=== PATIENT | female | born 1945 | race Caucasian/White ===

== ENCOUNTER 2023-02-03 08:55 | Day surgery (SDC) | payer OTHER, MEDICARE ==
[2023-02-03] MEDS ORDERED: Ringers Lactate 1,000 ML IV ONE (09:23)
[2023-02-03] MEDS ORDERED: CEFAZOLIN SODIUM 1 GM/VIAL ONE (09:23)
[2023-02-03 09:37] LABS: Absolute Lymphocytes (CBC) 1.1 K/uL (0.7-4.9); Hematocrit 38.9 % (36.0-45.0); Lymphocytes % 12.1 % (15.3-44.8); MCV 90.2 fL (80-100); MPV 7.4 fL (7.6-11.3); RBC Red Blood Cell Count 4.31 M/uL (3.86-4.86)
[2023-02-03 09:51] LABS: Potassium 3.8 mEq/L (3.5-5.1)
--- NOTE | 2023-02-03 10:26 | RAD REPORT ---
EXAM DESCRIPTION: Teodora Pa And Lat (2 Views)02/03/2023 9:56 am CLINICAL HISTORY: pre procedural screening. Hypertension COMPARISON: Ribs Right dated 04/19/2017 TECHNIQUE: Portable AP view of the chest. FINDINGS: The lungs are clear. Hyperlucency and hyperinflation suggestive of COPD. Left basilar atel ectasis, stable. No pneumothorax or effusion. The cardiomediastinal contours are unremarkable. IMPRESSION: No acute cardiopulmonary process. Sequelae of COPD and left basilar atelectasis, stable .
[2023-02-03] MEDS ORDERED: BUPIVACAINE 0.5% PF 10 ML VIAL ONE (11:03)
[2023-02-03] MEDS ORDERED: propofoL 200 MG/20 ML VIAL IV ONE (11:04)
[2023-02-03] MEDS ORDERED: FENTANYL CITR 100 MCG/2 ML ONE (11:04)
[2023-02-03] MEDS ORDERED: ONDANSETRON 4 MG/2 ML VIAL ONE (11:05)
[2023-02-03] MEDS ORDERED: LIDOCAINE 2% MPF 5 ML VIAL ONE (11:05)
[2023-02-03] MEDS ORDERED: Phenylephrine HCl 10 MG/ML 1 ML VIAL ONE (11:47)
[2023-02-03] MEDS ORDERED: EPHEDRINE SULF 50 MG/ML VIAL ONE (11:47)
[2023-02-03] MEDS ORDERED: NS 0.9% VIAL 10 ML ONE (11:48)
--- NOTE | 2023-02-03 12:09 | P.BOP ---
Preoperative diagnosis: infected right leg hematoma with abscess Postoperative diagnosis: same Primary procedure: Evacuation og leg leg infected hematoma/abscess 7x7cm Estimated blood loss: <10cc Specimen: pus culture Findings: abscess Anesthesia: General Complications: None Drain(s): Other (iodoform 08/10 ") Transferred to: Recovery Room Condition: Good
[2023-02-03] MEDS: MORPHINE 4 MG/ML SYR ONE ×2 (12:24→12:32)
[2023-02-03 13:21] VITALS: BP 115/67; TEMP 97; O2SAT 98
[2023-02-03] MEDS ORDERED: HYDROCODONE/APAP 5/325 MG TAB ONE (13:40)
--- NOTE | 2023-02-05 11:20 | EKG ---
Test Date: 2023-02-03 Test Time: 09:23:09 Cdl Service Technician: ARELI MEASUREMENT RESULTS: Intervals: Rate: 78 TX: 188 QRSD: 68 QT: 378 QTc: 430 Morgan: P: 69 TX: 188 QRS: 79 T: 74 INTERPRETIVE STATEMENTS: Normal sinus rhythm Normal ECG No previous ECG available for comparison Electronically Signed On 02-05-23 11:17:47 CDT by Duke Mi
--- NOTE | 2023-02-13 13:06 | DS ---
Date of Discharge: 02/03/2023 Diagnosis: Infected right leg hematoma with abscess. Procedure: Evacuation of right leg infected hematoma with complex abscess drainage. Disposition: Home. Activity: As tolerated. No heavy lifting. Plan: Follow up in my office in 1 week. Call for appointment at [phone]. The patient will be pack ing the area. Most of the skin was left open. We put some pressure and tried to use that as a skin graft to cover the areas of concern, so the packing made very simple for her to do iodoform daily. I f she needs any help, we might have to arrange for home health agency. She thinks she can do it. Inessa curran was advised to continue her antibiotics. We will see the patient in 1 week in my office. YARELIS Voice ID: [id number] Report ID: [id number]
--- NOTE | 2023-02-13 13:13 | OP ---
Date of Procedure: 02/03/2023 Surgeon: Gurmeet James MD Preoperative Diagnosis: Infected right leg hematoma with abscess. Postoperative Diagnosis: Infected right leg hematoma with abscess. Procedure: Evacuation of leg infected hematoma with abscess drainage 7 x 7 cm. Estimated Blood Loss: Less than 10 mL. Specimen: Pus culture. Finding: Complex abscess. Anesthesia: General plus local. Complications: None. Packing: Iodoform quarter of an inch. Indication: This is the case of a female, who comes to us with a trauma to the right leg region. Th is resulted in bulging in that area. It got red after her cat scratched her on the same area of anca bee and from there, she has been on antibiotics on and off for the last several weeks. To the point that she was sent to our office because it was not improving and it was requested for drainage of th e area, evacuation of hematoma and also drainage of an abscess. The benefits, alternatives, and risk s of that fully explained to the patient, which include, but not limited to infection, bleeding, tj ge to adjacent structures, anesthesia complication, nonhealing wound, VA, and even . She also u nderstands this may not relieve any symptoms. She might need more than one surgical intervention. S he understands she may require wound care. The area of concern was marked by me and the patient in t he holding room. Procedure In Detail: The patient was brought to the operating room, placed in supine position. Anes thesia was done without complication. A time-out was called. Leg was prepped and draped in the usua l sterile fashion. We have a necrotic center that have to be debrided. That necrotic center was rem gita. It is about 1.5 x 1.5 cm that led us into infected hematoma with pus coming out. Has multiple loculations that we have to be explored and opened. This complex abscess was completely drained wit h irrigation was done. Then, after that, we proceeded to pack the area with quarter of an inches Nu Gauze. Hemostasis was obtained at all times. The patient tolerated the procedure well. The patient was sent to recovery in stable condition. VAZQUEZ/JUSTINL Voice ID: [id number] Report ID: [id number]
== END 2023-02-03 14:00 | disposition home or self-care (01) ==
LOC: OR 08:55
PROVIDERS: ATTEND Surgery
PROC: 0H9KXZX Drainage of Right Lower Leg Skin, External Approach, Diagnostic (ICD-10-PCS; principal; 2023-02-03 11:00)
DX: S80.11XA Contusion of right lower leg, initial encounter (principal); L02.415 Cutaneous abscess of right lower limb; I96 Gangrene, not elsewhere classified
CPT/HCPCS: 93005; 87070; 85025; 80048; 36415; 87205; 88304; 87075; 71046; 10060; A4216; J2704; J2370; J2001; J3010; J2405; J7120; J0690

== ENCOUNTER 2024-09-14 16:26 | Emergency (ER) | payer OTHER, MEDICARE ==
--- NOTE | 2024-09-14 17:51 | RAD REPORT ---
EXAM: Knee Right 3 View INDICATION: PAIN COMPARISON: None FINDINGS: No acute fracture. Remote patellar fracture with deformity. Small knee effusion. Slight medial compartment narrowing. Mild patellofemoral compartment spurring. Other: n/a IMPRESSION: No evidence of acute osseous abnormality involving the imaged knee.
[2024-09-14] MEDS ORDERED: ACETAMINOPHEN 325 MG TABLET ONE (17:53)
[2024-09-14] MEDS ORDERED: TRAMADOL HCL 50 MG TAB ONE (17:54)
--- NOTE | 2024-09-14 17:59 | EDPHYS ---
Physician Documentation [facility] Name: Renetta Aguilera Age: 79 yrs Sex: Female : 1945 Arrival Date: 09/14/2024 Time: 16:26 Bed 4 Private MD: ED Physician Cain Suggs HPI: 09/14 16:44 This 79 yrs old Female presents to ER via Unassigned with complaints of Fall Injury, sb4 Knee Pain, Arm Pain. 16:44 tripped and fell getting out of her car a few hours ago, landed on her right knee. sb4 complains of pain with flexion and weight bearing. denies any numbness or tingling. is concerned because she has broken it in the past and required a knee replacement. Historical: - Allergies: 16:34 No Known Allergies; hb - PMHx: 16:34 reflux; hb 16:44 A fib; ll1 - PSHx: 16:44 lung collapsed; ll1 - Immunization history:: Adult Immunizations up to date. - Infectious Disease History:: Denies. - Social history:: Smoking status: Patient denies any tobacco usage or history of. ROS: 16:44 Constitutional: Negative for fever, chills, and weight loss, sb4 16:44 MS/extremity: Positive for injury or acute deformity, pain, of the right knee, 16:44 All other systems are negative, Exam: 16:44 Constitutional: This is a well developed, well nourished patient who is awake, alert, sb4 and in no acute distress. Head/Face: Normocephalic, atraumatic. Eyes: Extra-ocular motions intact. Periorbital areas with no swelling, redness, or edema. ENT: Mucous membranes moist. Respiratory: No increased work of breathing, no retractions or nasal flaring. 16:44 Musculoskeletal/extremity: Pulses: are normal with no appreciated deficits, Perfusion: the extremity is normally perfused throughout, Sensation intact. Joints: the right knee displays painful range of motion, 16:44 Skin: injury, abrasion(s), small abrasion noted, of the right elbow, Vital Signs: 16:43 BP 119 / 70; Pulse 81; Resp 17; Temp 97.8; Pulse Ox 100% ; Weight 47.63 kg; Height 5 ll1 ft. 8 in. ; Pain 10/10; 18:00 BP 118 / 92; Pulse 73; Resp 15; Pulse Ox 100% ; cm10 16:43 Body Mass Index 15.97 (47.63 kg, 172.72 cm) ll1 16:43 Pain Scale: Adult ll1 MDM: 16:36 Medical Screening Exam initiated sb4 17:47 Data reviewed: vital signs, nurses notes, radiologic studies, and as a result, I will sb4 discharge patient. Historians other than the Patient: Daughter/Son: daughter. Counseling: I had a detailed discussion with the patient and/or guardian regarding the historical points, exam findings, and any diagnostic results supporting the discharge/admit diagnosis, radiology results, the need for outpatient follow up, for definitive care, to return to the emergency department if symptoms worsen or persist or if there are any questions or concerns that arise at home. 09/14 16:43 Order name: Knee Right 3 View XRAY; Complete Time: 17:52 sb4 09/14 16:43 Order name: Wound Care; Complete Time: 18:32 sb4 09/14 17:48 Order name: Ice pack; Complete Time: 18:32 sb4 Administered Medications: 17:55 Drug: Acetaminophen PO 650 mg PO once Route: PO; ll1 18:32 Follow up: Response: No adverse reaction cm10 17:55 Drug: traMADol PO 50 mg PO once Route: PO; ll1 18:32 Follow up: Response: No adverse reaction cm10 Disposition Summary: 09/14/24 17:59 Discharge Ordered Notes: Location: Home sb4 Problem: new sb4 Symptoms: have improved sb4 Condition: Stable sb4 Diagnosis - Contusion of right knee, initial encounter sb4 Followup: sb4 - With: Chuck Dave MD - When: 1 week - Reason: Recheck today's complaints, Re-evaluation by your physician Discharge Instructions: - Discharge Summary Sheet sb4 - Knee Sprain, Adult, [id number] sb4 - Acute Knee Pain, Adult, [id number]-Vtfi sb4 Forms: - Patient Portal Instructions sb4 - Leadership Thank You Letter sb4 Signatures: Dispatcher [employer] rTish Wheeler RN RN Divya Nelson RN RN ll1 Anum John PA-C PAAdrienne sb4 Jacob, Maria Guadalupe, RN RN cm10 Corrections: (The following items were deleted from the chart) 16:44 16:44 Knee Right 3 View+RAD.RAD.BRZ ordered. EDMS EDMS
--- NOTE | 2024-09-14 17:59 | ER ---
Nurse's Notes [facility] Name: Renetta Aguilera Age: 79 yrs Sex: Female : 1945 Arrival Date: 09/14/2024 Time: 16:26 Bed 4 Private MD: Diagnosis: Contusion of right knee, initial encounter Presentation: 09/14 16:43 Chief complaint: Patient states: Tripped getting out of vehicle today. Landed on both ll1 knees and R elbow. Pain to R knee and R elbow since. Coronavirus screen: Client denies travel out of the [place] in the last 14 days. At this time, the client does not indicate any symptoms associated with coronavirus-19. Ebola Screen: Patient denies travel to an Ebola-affected area in the 21 days before illness onset. Initial Sepsis Screen: Does the patient meet any 2 criteria? No. Patient's initial sepsis screen is negative. Does the patient have a suspected source of infection? No. Patient's initial sepsis screen is negative. Risk Assessment: Do you want to hurt yourself or someone else? Patient reports no desire to harm self or others. Onset of symptoms was September 14, 2024. 16:43 Method Of Arrival: Ambulatory ll1 16:43 Acuity: CAITLIN 3 ll1 Triage Assessment: 16:45 General: Appears uncomfortable, Behavior is calm, cooperative, appropriate for age. ll1 Pain: Complains of pain in right arm and right leg Quality of pain is described as aching. Musculoskeletal: Reports pain in right arm and right leg. Historical: - Allergies: 16:34 No Known Allergies; hb - PMHx: 16:34 reflux; hb 16:44 A fib; ll1 - PSHx: 16:44 lung collapsed; ll1 - Immunization history:: Adult Immunizations up to date. - Infectious Disease History:: Denies. - Social history:: Smoking status: Patient denies any tobacco usage or history of. Screenin:16 [facility] ED Fall Risk Assessment (Adult) History of falling in the last 3 months, cm10 including since admission Yes- single mechanical fall (1 pt) Confusion or Disorientation No (0 pts) Intoxicated or Sedated No (0 pts) Impaired Gait No (0 pts) Mobility Assist Device Used No (0 pt) Altered Elimination No (0 pt) Score/Fall Risk Level 0 - 2 = Low Risk Oriented to surroundings, Maintained a safe environment, Hourly rounding (assess needs \T\ fall precautionary measures) done. Abuse screen: Denies threats or abuse. Denies injuries from another. Nutritional screening: No deficits noted. 18:34 Tuberculosis screening: No symptoms or risk factors identified. cm10 Assessment: 17:15 General: Appears in no apparent distress. comfortable, Behavior is calm, cooperative. cm10 Pain: Complains of pain in right elbow and right knee Pain currently is 10 out of 10 on a pain scale. Neuro: No deficits noted. Level of Consciousness is awake, alert, obeys commands, Oriented to person, place, time, situation, Appropriate for age. Respiratory: No deficits noted. Airway is patent Respiratory effort is even, unlabored, Respiratory pattern is regular, symmetrical. Derm: Wound noted right elbow Wound is Abrasion. Musculoskeletal: Reports pain in right elbow and right knee. Vital Signs: 16:43 BP 119 / 70; Pulse 81; Resp 17; Temp 97.8; Pulse Ox 100% ; Weight 47.63 kg; Height 5 ll1 ft. 8 in. ; Pain 10/10; 18:00 BP 118 / 92; Pulse 73; Resp 15; Pulse Ox 100% ; cm10 16:43 Body Mass Index 15.97 (47.63 kg, 172.72 cm) ll1 16:43 Pain Scale: Adult ll1 ED Course: 16:33 Patient arrived in ED. ra3 16:34 Arm band placed on Patient placed in an exam room, on a stretcher. hb 16:36 Anum John PA-C is PHCP. sb4 16:36 Cain Suggs MD is Attending Physician. sb4 16:38 Maria Guadalupe James, JACKIE is Primary Nurse. cm10 16:44 Triage completed. ll1 17:16 Patient has correct armband on for positive identification. Bed in low position. Call cm10 light in reach. Side rails up X2. Provided Education on: ER process and procedures.. 17:41 Knee Right 3 View XRAY In Process Unspecified. EDMS 17:59 Chuck Dave MD is Referral Physician. sb4 18:33 No provider procedures requiring assistance completed. Patient did not have IV access cm10 during this emergency room visit. Wound care: to abrasion, located on right elbow was cleaned with dressed with Neosporin, 4X4s, ice pack applied. Administered Medications: 17:55 Drug: Acetaminophen PO 650 mg PO once Route: PO; ll1 18:32 Follow up: Response: No adverse reaction cm10 17:55 Drug: traMADol PO 50 mg PO once Route: PO; ll1 18:32 Follow up: Response: No adverse reaction cm10 Medication: 17:16 VIS not applicable for this client. cm10 Outcome: 17:59 Discharge ordered by MD. nieves 18:34 Discharged to home via wheelchair, with friend, cm10 18:34 Condition: good 18:34 Discharge instructions given to patient, Instructed on discharge instructions, follow up and referral plans. Demonstrated understanding of instructions, follow-up care, wound care, 18:34 Patient left the ED. cm10 Signatures: Dispatcher [employer] EDTrish Roldan RN Divya Hernandez RN RN ll1 Anum John, PAMaria Guadalupe Hansen PA-C, RN RN cm10 Gabriela Wood
[2024-09-14 19:07] VITALS: TEMP 97.8; O2SAT 100
[2024-09-14 19:08] VITALS: BP 118/92
== END 2024-09-14 18:34 | disposition home or self-care (01) ==
LOC: ER 16:26
DX: S80.01XA Contusion of right knee, initial encounter (principal)
CPT/HCPCS: 99283